=== PATIENT | female | born 1985 | race Caucasian/White ===

== ENCOUNTER 2017-05-25 09:56 | Emergency (ER) | payer OTHER ==
[2017-05-25 10:16] VITALS: BP 127/99
--- NOTE | 2017-05-25 10:35 | EDM.PDOC ---
ED HPI GENERAL MEDICAL PROBLEM - General Chief Complaint: Chest Pain Stated Complaint: CHEST PRESSURE Time Seen by Provider: 05/25/17 10:34 Source of Information: Reports: Patient History Limitations: Reports: No Limitations - History of Present Illness INITIAL COMMENTS - FREE TEXT/NARRATIVE: 31-year-old female presents to the ED with central chest heaviness that has been gradually worsening over the last 2-3 days. She feels she caught a cold but she doesn't have a sore throat and is not bringing up much in terms of sputum. Has central chest heaviness and a sense of dyspnea. Orthopnea the last 2 nights. She has a history of previous bacterial endocarditis in 2011 where she spent 3 months in hospital for IV antibiotic therapy. She was using intravenous drugs at that time. Last used of IV drugs was about 3 weeks ago. She is currently incarcerated in the [facility]. She is currently on no medications. She has a history of past problems with asthma. She does not have an inhaler at this time. She claims that she's had fever with some chills over the last 3 days. Onset: Gradual Onset Date: 05/22/17 Duration: Day(s): Location: Reports: Chest (Heaviness central chest with dyspnea) Quality: Reports: Pressure Severity: Moderate (Heaviness central chest.) Improves with: Reports: None Worsens with: Reports: Other (Lying down.) Context: Denies: Activity ( And walking.), Exercise, Lifting, Sick Contact, Trauma Associated Symptoms: Reports: Chest Pain, Cough, Fever/Chills (History of chills and), Malaise, Shortness of Breath. Denies: No Other Symptoms (Chest heaviness as described above), Confusion, cough w sputum (Dry with no sputum), Diaphoresis, Headaches ( subjective fever over the weekend.), Loss of Appetite, Nausea/Vomiting, Rash, Seizure, Syncope, Weakness Treatments TRANSPORT OPERATIONS INSPECTOR: Reports: Other (see below) (None.) Chest Pain Score (Numeric/FACES): 8 - Related Data Allergies Allergy/AdvReac Type Severity Reaction Status Date / Time Penicillins Allergy Swelling Verified 05/25/17 10:10 Home Meds: Home Meds Furosemide [Lasix] 20 mg PO DAILY #30 tablet 05/25/17 [Rx] Past Medical History Cardiovascular History: Reports: Other (See Below) Other Cardiovascular History: 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 She reports she spent 3 months in hospital with intravenous antibiotic therapy. SOCIAL SERVICES COUNSELOR History: Reports: Psychiatric History: Reports: Addiction, Anxiety, Depression - Infectious Disease History Infectious Disease History: Reports: Chicken Pox, Hepatitis C - Past Surgical History GI Surgical History: Reports: Cholecystectomy Social & Family History - Tobacco Use Smoking Status *Q: Current Every Day Smoker Years of Tobacco use: 17 Packs/Tins Daily: 1 - Caffeine Use Caffeine Use: Reports: Coffee, Energy Drinks, Soda, Tea - Recreational Drug Use Recreational Drug Use: Yes Drug Use in Last 12 Months: Yes Recreational Drug Type: Reports: Methamphetamine, Other (see below) Other Recreational Drug Type: pain pills Recreational Drug Use Frequency: Daily - Living Situation & Occupation Living situation: Reports: Single (Currently incarcerated in the [facility].) ED ROS GENERAL - Review of Systems Review Of Systems: See Below Constitutional: Reports: Fever, Chills, Malaise, Fatigue, Night Sweats, Diaphoresis. Denies: Weight Loss HEENT: Reports: Other (Mild nasal congestion) Respiratory: Reports: Shortness of Breath, Cough. Denies: Wheezing, Pleuritic Chest Pain, Sputum, Hemoptysis, Other Cardiovascular: Reports: Chest Pain, Dyspnea on Exertion (See history of present illness), Orthopnea. Denies: Blood Pressure Problem GI/Abdominal: Reports: No Symptoms : Reports: No Symptoms Musculoskeletal: Reports: No Symptoms Skin: Reports: No Symptoms Neurological: Reports: No Symptoms Psychiatric: Reports: No Symptoms Hematologic/Lymphatic: Reports: No Symptoms ED EXAM, GENERAL - Physical Exam Exam: See Below Exam Limited By: No Limitations General Appearance: Alert, WD/WN, No Apparent Distress, Other (Afebrile on initial exam.) Eye Exam: Bilateral Eye: Normal Inspection Ears: Normal TMs Nose: Normal Inspection Throat/Mouth: Normal Inspection, Normal Lips, Normal Teeth, Normal Oropharynx Head: Atraumatic, Normocephalic Neck: Normal Inspection, Supple, Non-Tender, Full Range of Motion. No: Lymphadenopathy (L), Lymphadenopathy (R) Respiratory/Chest: No Respiratory Distress, Lungs Clear, Normal Breath Sounds, No Accessory Muscle Use Cardiovascular: Normal Peripheral Pulses, Regular Rate, Rhythm, No Edema, No Gallop, Systolic Murmur (Very slight systolic ejection murmur appreciated left lower sternal border graded as less than 1 out of 6) Peripheral Pulses: 3+: Posterior Tibial (L), Posterior Tibial (R), Dorsalis Pedis (L), Dorsalis Pedis (R) GI/Abdominal: Normal Bowel Sounds, Soft, Non-Tender, No Organomegaly, No Distention, Other (Evidence of laparoscopic cholecystectomy.) Back Exam: Normal Inspection, Full Range of Motion. No: CVA Tenderness (L), CVA Tenderness (R) Extremities: Normal Inspection, Normal Range of Motion, Non-Tender, No Pedal Edema, Normal Capillary Refill Neurological: Alert, Oriented, CN II-XII Intact, Normal Cognition, Normal Gait Psychiatric: Normal Affect, Normal Mood Skin Exam: Warm, Dry, Intact, Normal Color, No Rash, Other (She has evidence of previous IV drug abuse with numerous nodularities along the vessels particularly in the antecubital fossa's bilaterally.) EKG INTERPRETATION EKG Date: 05/25/17 Time: 10:10 Rhythm: NSR Rate (Beats/Min): 82 [place]: RAD-Right [place] Deviation (Mild right axis deviation at 98.) P-Wave: Enlarged (Consider left atrial hypertrophy.) QRS: Other (RSR prime in V2 normal variant) ST-T: Normal QT: Prolonged (Mildly prolonged) Course - Vital Signs Last Recorded V/S: Last Vital Signs Temp 36.2 C 05/25/17 10:11 Pulse 80 05/25/17 10:11 Resp 21 H 05/25/17 10:11 BP 127/99 H 05/25/17 10:11 Pulse Ox 100 05/25/17 11:30 - Orders/Labs/Meds Orders: Active Orders 24 hr Category Date Time Status EKG Documentation Completion [RC] STAT Care 05/25/17 10:10 Active EKG Documentation Completion [RC] STAT Care 05/25/17 10:44 Inactive RT Aerosol Therapy [RC] ASDIRECTED Care 05/25/17 11:22 Active Chest 1V Frontal [CR] Stat Exams 05/25/17 10:44 Taken Blood Culture x2 Reflex Set [OM.PC] Stat Oth 05/25/17 10:44 Ordered Labs: Laboratory Tests 05/25/17 05/25/17 05/25/17 Range/Units 11:00 11:00 11:00 WBC 7.45 (3.98-10.04) K/mm3 RBC 4.12 (3.98-5.22) M/mm3 Hgb 12.2 (11.2-15.7) gm/L Hct 35.6 (34.1-44.9) % MCV 86.4 (79.4-94.8) fl MCH 29.6 (25.6-32.2) pg MCHC 34.3 (32.2-35.5) g/dl RDW Std Deviation 45.2 (36.4-46.3) fL Plt Count 338 (182-369) K/mm3 MPV 9.0 L (9.4-12.3) fl Neutrophils % (Manual) 65 H (40-60) % Band Neutrophils % 0 (0-10) % Lymphocytes % (Manual) 34 (20-40) % Atypical Lymphs % 0 % Monocytes % (Manual) 0 L (2-10) % Eosinophils % (Manual) 0 L (0.7-5.8) % Basophils % (Manual) 1 (0.1-1.2) Platelet Estimate Adequate RBC Morph Comment Normal ESR (0-20) mm/hr PT 11.2 (8.0-13.0) SECONDS INR 1.03 Sodium 140 (136-145) mEq/L Potassium 4.2 (3.5-5.1) mEq/L Chloride 105 (98-107) mEq/L Carbon Dioxide 27 (21-32) mEq/L Anion Gap 12.2 (5-15) BUN 12 (7-18) mg/dL Creatinine 0.8 (0.55-1.02) mg/dL Est Cr Clr Drug Dosing 74.53 mL/min Estimated GFR (MDRD) > 60 (>60) mL/min BUN/Creatinine Ratio 15.0 (14-18) Glucose 84 (74-106) mg/dL Calcium 8.9 (8.5-10.1) mg/dL Total Bilirubin 0.4 (0.2-1.0) mg/dL AST 14 L (15-37) U/L ALT 19 (14-59) U/L Alkaline Phosphatase 49 (46-116) U/L CK-MB (CK-2) < 0.5 (0-3.6) ng/ml Troponin I < 0.017 (0.00-0.056) ng/mL C-Reactive Protein < 0.2 (<1.0) mg/dL Qhd-V-Amnfyjoazzx Pept 264 H (0-125) pg/mL Total Protein 7.2 (6.4-8.2) g/dl Albumin 3.4 (3.4-5.0) g/dl Globulin 3.8 gm/dL Albumin/Globulin Ratio 0.9 L (1-2) 05/25/17 Range/Units 11:00 WBC (3.98-10.04) K/mm3 RBC (3.98-5.22) M/mm3 Hgb (11.2-15.7) gm/L Hct (34.1-44.9) % MCV (79.4-94.8) fl MCH (25.6-32.2) pg MCHC (32.2-35.5) g/dl RDW Std Deviation (36.4-46.3) fL Plt Count (182-369) K/mm3 MPV (9.4-12.3) fl Neutrophils % (Manual) (40-60) % Band Neutrophils % (0-10) % Lymphocytes % (Manual) (20-40) % Atypical Lymphs % % Monocytes % (Manual) (2-10) % Eosinophils % (Manual) (0.7-5.8) % Basophils % (Manual) (0.1-1.2) Platelet Estimate RBC Morph Comment ESR 25 H (0-20) mm/hr PT (8.0-13.0) SECONDS INR Sodium (136-145) mEq/L Potassium (3.5-5.1) mEq/L Chloride (98-107) mEq/L Carbon Dioxide (21-32) mEq/L Anion Gap (5-15) BUN (7-18) mg/dL Creatinine (0.55-1.02) mg/dL Est Cr Clr Drug Dosing mL/min Estimated GFR (MDRD) (>60) mL/min BUN/Creatinine Ratio (14-18) Glucose (74-106) mg/dL Calcium (8.5-10.1) mg/dL Total Bilirubin (0.2-1.0) mg/dL AST (15-37) U/L ALT (14-59) U/L Alkaline Phosphatase (46-116) U/L CK-MB (CK-2) (0-3.6) ng/ml Troponin I (0.00-0.056) ng/mL C-Reactive Protein (<1.0) mg/dL Pzm-Q-Tbdkwtxtana Pept (0-125) pg/mL Total Protein (6.4-8.2) g/dl Albumin (3.4-5.0) g/dl Globulin gm/dL Albumin/Globulin Ratio (1-2) Meds: Medications Discontinued Medications Generic Name Dose Route Start Last Admin Trade Name [place] PRN Reason Stop Dose Admin Albuterol/Ipratropium 3 ml 05/25/17 11:22 05/25/17 11:30 Duoneb 3.0-0.5 Mg/3 Ml NEB 05/25/17 11:23 3 ml ONETIME ONE Administration Furosemide 40 mg 05/25/17 13:46 05/25/17 14:10 Lasix PO 05/25/17 13:47 40 mg ONETIME ONE Administration - Radiology Interpretation Free Text/Narrative:: 31-year-old female whom is currently incarcerated in the [facility] presents to the ED with central chest heaviness pressure discomfort that is gradually worsened over the last 3 days. She felt that she initially was cody a cold. She does have minimal cough without productive sputum. She claims that she's experienced fever and chills over the weekend and has orthopnea. She is in his intravenous drug abuser and was hospitalized in 2011 for 3 months because of development of bacterial endocarditis. She believes the mitral valve was affected at that time. On examination she is afebrile. Ears nose throat exam is normal. Chest is clear postage percussion heart was sinus with very slight systolic ejection murmur heard in the lying down position. ECG is essentially normal sinus rhythm at 82/ m with left atrial hypertrophy pattern. Mild right axis deviation. Plan chest x- ray routine labs blood culture 1. Sedimentation rate and CRP to be done. And I will do a bedside echo when I get a few minutes. - Re-Assessments/Exams Free Text/Narrative Re-Assessment/Exam: 05/25/17 11:22 chest x-ray done portably is within normal limits showing normal heart size and clear lung macias. 05/25/17 13:18 CRP came back at less than 0.2. BNP is slightly elevated at 264. White count was 7.45 with a normal differential 65% neutrophils and no bands. Hemoglobin is 12.2 hematocrit is 35.6. Platelets 330,000. Sedimentation rate was slightly elevated at 25. Coags normal chemistry normal. I will do a bedside echo to make sure that she does not have any significant pericardial effusion. 05/25/17 13:46 the echo was somewhat difficult due to her size and unfortunately stomach was filled with food. She does have very mild mitral good vegetation on echo but wall motion appears to be normal and there was no signs of pericardial effusion. Her BNP is mildly elevated at 264 however. I will therefore suggest Lasix 40 mg by mouth now and then to 20 mg once daily in the mornings. There is no evidence that she has any recurrence of endocarditis. By history the heart was in significant failure at the time of the endocarditis but ejection fraction I obtained today was around 55% which is normal. I do not have any echoes to compare to. Suggest cardiology follow-up. She believes her last echo was in November of this year. Departure - Departure Time of Disposition: 13:49 Disposition: Home, Self-Care 01 Condition: Fair Clinical Impression: Mitral valve insufficiency Qualifiers: Cardiac valve disease etiology: nonrheumatic Qualified Code(s): I34.0 - Nonrheumatic mitral (valve) insufficiency Prescriptions: Furosemide [Lasix] 20 mg PO DAILY #30 tablet Instructions: Mitral Valve Regurgitation Referrals: PCP,None [Primary Care Provider] - Forms: ED Department Discharge Additional Instructions: Evaluation in the emergency room today in regards to central chest heaviness developing over the last few days. Worse when you lie down. History of bacterial endocarditis in 2011 with associated severe congestive heart failure by history. No fever identified today on exam and lab work reveals no signs of any systemic infection that would suggest a recurrence of endocarditis. White count was 7.45 with a normal differential markers for infection are negative with a CRP of less than 0.2. There is still evidence of the mitral valve not closing all the way i.e. mitral regurgitation murmur. Minimal flow across the valve is appreciated on echocardiogram. There is evidence of mild congestive failure with BNP at 264 today. Lungs were otherwise clear all other tests were normal. Suggest Lasix 20 mg once daily every morning. You're probably due for cardiology assessment with repeat echocardiogram if the last test was in November . Depending on what those results showed usually follow you with repeat echocardiogram every 6 months to a year. - My Orders Last 24 Hours: My Active Orders 05/25/17 10:10 EKG Documentation Completion [RC] STAT 05/25/17 10:44 EKG Documentation Completion [RC] STAT Chest 1V Frontal [CR] Stat Blood Culture x2 Reflex Set [OM.PC] Stat 05/25/17 11:22 RT Aerosol Therapy [RC] ASDIRECTED - Assessment/Plan Last 24 Hours: My Active Orders 05/25/17 10:10 EKG Documentation Completion [RC] STAT 05/25/17 10:44 EKG Documentation Completion [RC] STAT Chest 1V Frontal [CR] Stat Blood Culture x2 Reflex Set [OM.PC] Stat 05/25/17 11:22 RT Aerosol Therapy [RC] ASDIRECTED
[2017-05-25] MEDS ORDERED: Albuterol/Ipratropium 3.0-0.5 MG/3 ML Neb Soln NEB ONE (11:22)
[2017-05-25] MEDS ORDERED: Furosemide 40 MG Tab PO ONE (13:46)
--- NOTE | 2017-05-28 10:46 | CR ---
Chest: Frontal view of the chest was obtained. Comparison: No previous study. Heart size and mediastinum are within normal limits. Lungs are clear. Bony structures are grossly intact. Previous cholecystectomy is noted with surgical clips in place. Impression: 1. Nothing acute is identified on frontal chest x-ray. Diagnostic code #2
== END 2017-05-25 14:15 | disposition home or self-care (01) ==
LOC: JD.ED 09:56
DX: I34.0 Nonrheumatic mitral (valve) insufficiency (principal); F32.9 Major depressive disorder, single episode, unspecified; F41.9 Anxiety disorder, unspecified; F17.210 Nicotine dependence, cigarettes, uncomplicated; Z79.899 Other long term (current) drug therapy; Z88.0 Allergy status to penicillin; Z90.49 Acquired absence of other specified parts of digestive tract; Z98.890 Other specified postprocedural states
CPT/HCPCS: 36415; 71010; 80053; 82553; 83880; 84484; 85025; 85610; 85652; 86140; 93005; 94664; 99285; A9270